=== PATIENT | female | born 1935 | race Caucasian/White ===

== ENCOUNTER 2016-12-31 15:00 | Emergency (ER) | payer OTHER, MEDICARE ==
[~2016-12-31] VITALS: Ht 152.4 cm; Wt 49.7 kg
[~2016-12-31 15:00] MED LIST: BACLOFEN10 MG PO; CEFTIN500 MG PO; Colace PO; Desyrel PO; LEVETIRACETAM500 MG PO; MAGIC CUP PO; MILK OF MAGN PO; MOBIC7.5 MG PO; OMEPRAZOLE20 MG PO; OXAYDO5 MG PO; PRILOSEC20 MG PO; Protonix PO; REMERON15 M2 PO; SENOKOT S,PE1 TABLET PO; STOOL SOFTENER100 M1 PO; TAB-A-VITE1 EACH PO; TYLENOL ARTHRI650 MG PO; TYLENOL REGULA325 MG PO; Theragran PO; Vicodin,Norco 5/325 PO; ZOLOFT100 MG PO; ZOLOFT50 MG PO; ZYRTEC5 MG PO; Zoloft PO; [UNRECOGNIZED DRUG - REMARK] PO; [UNRECOGNIZED DRUG - REMARK] PO
[2016-12-31 20:48] VITALS: BP 152/120
== END 2016-12-31 20:50 ==
LOC: EME 15:00
PROC: 0HQ1XZZ Repair Face Skin, External Approach (ICD-10-PCS; principal; 2016-12-31)
DX: S01.111A Laceration without foreign body of right eyelid and periocular area, initial encounter (principal); W22.09XA Striking against other stationary object, initial encounter; G30.9 Alzheimer's disease, unspecified; K21.9 Gastro-esophageal reflux disease without esophagitis; Z96.652 Presence of left artificial knee joint; F32.9 Major depressive disorder, single episode, unspecified
CPT/HCPCS: 70450; 99281; 99285